=== PATIENT | female | born 1965 | race Caucasian/White ===

== ENCOUNTER 2021-10-15 10:34 | Outpatient (CLI) | payer BC | END 2021-10-15 10:35 | disposition home or self-care (01) | LOC: SCSMRI 10:34 | PROVIDERS: ATTEND Anesthesiology | DX: M43.16 Spondylolisthesis, lumbar region (principal); M47.26 Other spondylosis with radiculopathy, lumbar region; M48.061 Spinal stenosis, lumbar region without neurogenic claudication | CPT/HCPCS: 72120; 72148 ==